=== PATIENT | male | born 1950 | race African-American/Black ===

== ENCOUNTER → 2017-07-15 | Day surgery (SDC) | payer MEDICARE ==
[~2017-07-15] VITALS: Ht 188 cm; Wt 98.4 kg
[~2017-07-15] MED LIST: AMLO2.5T45 PO; BACITRACIN ZINC 15GM TUBE TOP ONE; BUPIVACAINE HCL/PF 0.5% (5MG/ML) 10ML ONE; FENTANYL CITRATE/PF 50MCG/ML 2ML VIAL ONE; FINA5TAB11 PO; LABETALOL HCL 20MG/4ML CARPUJECT IV PRN; LACTATED RINGERS 1,000 ML IV SCH; MEPERIDINE HCL/PF 25MG/ML CPJ IV PRN; MIDAZOLAM HCL 2 MG/2 ML VIAL ONE; ONDANSETRON HCL 4MG/2ML VIAL IV PRN
[2017-07-15 06:50] LABS: CLARITY URINE CLEAR (CLEAR); COLOR URINE YELLOW (YELLOW); GLUCOSE URINE NEGATIVE (NEGATIVE); KETONES URINE NEGATIVE (NEGATIVE); LEUKOCYTE ESTERASE URINE NEGATIVE (NEGATIVE); NITRITE URINE NEGATIVE (NEGATIVE); OCCULT BLOOD URINE TRACE (NEGATIVE); PH URINE 5.5 (4.5-8.0); PROTEIN URINE NEGATIVE (NEGATIVE); SPECIFIC GRAVITY URINE 1.021 (1.005-1.030); UROBILINOGEN URINE 0.2 E.U./dL (0.2-1.0)
[2017-07-15] MEDS: HYDROMORPHONE HCL/PF 2MG/ML CPJ IV PRN ×3 (10:01→10:15)
[2017-07-15 10:15] VITALS: BP 135/64
== END | disposition home or self-care (01) ==
LOC: OR 05:37
PROVIDERS: ATTEND Urology
DX: N43.3 Hydrocele, unspecified (principal); N43.41 Spermatocele of epididymis, single; I10 Essential (primary) hypertension; M19.90 Unspecified osteoarthritis, unspecified site; N40.0 Benign prostatic hyperplasia without lower urinary tract symptoms; M06.80 Other specified rheumatoid arthritis, unspecified site; Z79.82 Long term (current) use of aspirin
CPT/HCPCS: 55040; 71010; 81001; 88108; 88302; J1170; J2250; J2405; J3010; J3490; J7120